=== PATIENT | male | born 1990 | race African-American/Black ===

== ENCOUNTER 2017-04-08 12:45 | Emergency (ER) | payer MEDICAID, OTHER ==
[~2017-04-08] VITALS: Ht 167.6 cm; Wt 73.0 kg
[2017-04-08 13:01] VITALS: BP 153/100
== END 2017-04-08 15:48 | disposition home or self-care (01) ==
LOC: ER 12:45
DX: L73.1 Pseudofolliculitis barbae (principal)
CPT/HCPCS: 99283

== ENCOUNTER 2017-10-05 14:41 | Emergency (ER) | payer MEDICAID ==
[~2017-10-05] VITALS: Ht 167.6 cm; Wt 65.0 kg
[2017-10-05] MEDS ORDERED: BACITRACIN ZINC OINT UDPKT TOP ONE (18:30)
[2017-10-05] MEDS ORDERED: LIDOCAINE HCL 1% 20ML VIAL (Pyxis) INJ INFIL ONE (18:30)
[2017-10-05] MEDS ORDERED: LIDOCAINE HCL/PF 1% 10 MG/ML 5ML VIAL IJ NR (18:45)
[2017-10-05] MEDS ORDERED: IBUPROFEN 600MG TABLET PO ONE (19:45)
[2017-10-05 20:05] VITALS: BP 119/79
== END 2017-10-05 20:16 | disposition home or self-care (01) ==
LOC: ER 16:42
DX: L02.11 Cutaneous abscess of neck (principal)
CPT/HCPCS: 10060; 99283; J3490; Z7610

== ENCOUNTER 2017-10-07 18:12 | Emergency (ER) | payer MEDICAID ==
[~2017-10-07] VITALS: Ht 167.6 cm; Wt 65.0 kg
[2017-10-07 18:16] VITALS: BP 139/93
== END 2017-10-08 01:04 | disposition left against medical advice (07) ==
LOC: ER 19:21
DX: Z48.01 Encounter for change or removal of surgical wound dressing (principal)
CPT/HCPCS: 99281

== ENCOUNTER 2017-10-08 11:00 | Emergency (ER) | payer MEDICAID ==
[~2017-10-08] VITALS: Ht 167.6 cm; Wt 64.0 kg
[2017-10-08 11:24] VITALS: BP 144/88
== END 2017-10-08 12:15 | disposition home or self-care (01) ==
LOC: ER 11:55
DX: Z48.817 Encounter for surgical aftercare following surgery on the skin and subcutaneous tissue (principal)
CPT/HCPCS: 99282